=== PATIENT | female | born 1985 | race Caucasian/White ===

== ENCOUNTER 2017-07-08 09:43 | Emergency (ER) | payer OTHER ==
[2017-07-08 09:51] VITALS: BP 114/78
[2017-07-08] MEDS ORDERED: Ibuprofen TAB* 400 MG PO ONE (10:26)
--- NOTE | 2017-07-08 10:30 | UC ---
Knee Pain HPI - HPI Summary HPI Summary: Pt here w/ Lt knee pain since last evening - noticed shortly after trying to round up her chickens. No acute pain but had gradual progression of soreness and stiffness. Worse w/ flexion (can't bend knee - pain/stiffness). Also hurts to fully extend. Denies numbness, tingling, weakness. No bruising, redness or fever to touch. H/o growth plate fx as a teen - screw placed and later removed - no residual issues. She state her knee gets stiff from time to time but she's usually able to walk it off. Tried resting this pain last night but no better this morning and had pain/stiffness throughout the night as well. She's able to bear weight but is worse. Has not tried ice nor ibuprofen yet. - History of Current Complaint Chief Complaint: UCLowerExtremity Stated Complaint: LEG PAIN Time Seen by Provider: 07/08/17 10:07 Hx Obtained From: Patient Hx Last Menstrual Period: 07/07/17 - Allergies/Home Medications Allergies/Adverse Reactions: Allergies Allergy/AdvReac Type Severity Reaction Status Date / Time Sulfa Drugs Allergy Intermediate Rash And Verified 07/08/17 09:46 Itching PMH/Surg Hx/FS Hx/Imm Hx - Surgical History Surgical History: Yes Surgery Procedure, Year, and Place: LEFT KNEE SX. NERVE REPAIR LEFT HAND. C- section - Family History Known Family History: Positive: None - Social History Occupation: Works From/At Home Lives: With Family Alcohol Use: None Substance Use Type: None Substance Use Comment - Amount & Last Used: declines while Smoking Status (MU): Former Smoker Type: Cigarettes Amount Used/How Often: 1/2 PPD Length of Time of Smoking/Using Tobacco: 21 YEARS Have You Smoked in the Last Year: Yes When Did the Patient Quit Smoking/Using Tobacco: December 2016 Household Exposure Type: Cigarettes - Immunization History Most Recent Influenza Vaccination: pt declined Most Recent Tetanus Shot: not given..pt declined Most Recent Pneumonia Vaccination: none Review of Systems Constitutional: Negative Skin: Negative Motor: Other - see HPI Neurovascular: Negative Musculoskeletal: Other: - see HPI Neurological: Negative Psychological: Negative Is Patient Immunocompromised?: No All Other Systems Reviewed And Are Negative: Yes Physical Exam Triage Information Reviewed: Yes Appearance: Well-Appearing, No Pain Distress - at rest; uncomfortable w/ sitting to standing transition w/ LLE movements, Obese Vital Signs: Initial Vital Signs Temp 98.1 F 07/08/17 09:46 Pulse 82 07/08/17 09:46 Resp 16 07/08/17 09:46 BP 114/78 07/08/17 09:46 Pulse Ox 99 07/08/17 09:46 Vital Signs Reviewed: Yes Eye Exam: Normal ENT Exam: Normal Respiratory Exam: Normal Cardiovascular Exam: Normal Cardiovascular: Positive: Pulses Normal, Brisk Capillary Refill Musculoskeletal: Positive: Strength Intact - within limited ROM for Lt knee; FROM and strength for ankles/toes; + modified Bart on Lt, No Edema Neurological Exam: Normal Psychological Exam: Normal Skin Exam: Normal Knee Pain Course/Dx - Course Course Of Treatment: Suspect meniscal injury. XR normal. Advise RICE and cructhes to reduce weight bearing as she's quite active w/ many children and animals at home - this will also help reduce risk of weight bearing w/ pivoting movements which would make injury worse. Advised to rest and f/u w/ PCP in 1 week. If persists to 2 weeks, may need ortho consult. Pt agrees w/ plan. - Differential Dx/Diagnosis Provider Diagnoses: Lt knee pain Discharge - Discharge Plan Condition: Stable Disposition: HOME Patient Education Materials: Knee Pain (ED), Crutch Instructions (ED) Referrals: Antionette Jones MD [Primary Care Provider] - Additional Instructions: Rest, ice, elevate, Compress with ALESHA wrap Avoid weight bearing for 1-2 weeks Gentle range of motion to reduce stiffness and atrophy Take ibuprofen 600mg every 6 hours with food for pain and swelling Follow-up with PCP in 1 week *If pain is same or worse in 2 weeks, may require consult with orthopedics
--- NOTE | 2017-07-08 11:00 | RAD ---
HISTORY: Left knee pain and stiffness COMPARISONS: None VIEWS: 4, Frontal, lateral, axial, and oblique views of the left knee FINDINGS: BONE DENSITY: Normal. BONES: There is no displaced fracture. JOINTS: There is no arthropathy. There is no suprapatellar joint effusion or lipohemarthrosis. ALIGNMENT: There is no dislocation. SOFT TISSUES: Unremarkable. OTHER FINDINGS: None. IMPRESSION: NO ACUTE OSSEOUS INJURY. IF SYMPTOMS PERSIST, RECOMMEND REPEAT IMAGING.
== END 2017-07-08 11:19 | disposition home or self-care (01) ==
LOC: UCEAST 09:43
DX: M25.562 Pain in left knee (principal); Z88.2 Allergy status to sulfonamides; Z87.891 Personal history of nicotine dependence
CPT/HCPCS: 99213; A9270-GY; G0463

== ENCOUNTER 2018-04-12 14:14 | Emergency (ER) | payer OTHER ==
[2018-04-12 14:48] VITALS: BP 107/70
--- NOTE | 2018-04-12 15:37 | ED ---
Throat Pain/Nasal Congestion - HPI Summary HPI Summary: 33F presents with swelling to her left sided jaw for the past couple days. She states she had a toothache a week ago and has been progressively getting worse. She has not seen a dentist. She has history of a diffuse cavities throughout. She had fracture of the tooth previously. No fevers. No difficulty swallowing. No sore throat. No chest pain shortness of breath. No pain with eye movement or swelling around eyes. Has been taking Tylenol for the pain. - History of Current Complaint Chief Complaint: UCDentalProblem Time Seen by Provider: 04/12/18 15:25 - Allergies/Home Medications Allergies/Adverse Reactions: Allergies Allergy/AdvReac Type Severity Reaction Status Date / Time Sulfa (Sulfonamide Allergy Rash And Verified 04/12/18 14:48 Antibiotics) Itching Home Medications: Home Medications Acetaminophen [Tylenol Extra Strength] 2,000 mg PO Q6H PRN 04/12/18 [History Confirmed 04/12/18] Escitalopram Oxalate [Lexapro 20 mg] 20 mg PO DAILY 04/12/18 [History Confirmed 04/12/18] PMH/Surg Hx/FS Hx/Imm Hx Endocrine/Hematology History: Reports: Hx Thyroid Disease - on levothyroxine Denies: Hx Diabetes Cardiovascular History: Denies: Hx Hypertension Respiratory History: Reports: Hx Asthma Denies: Hx Chronic Obstructive Pulmonary Disease (COPD) GI History: Denies: Hx Ulcer Psychiatric History: Reports: Hx Depression - Surgical History Surgery Procedure, Year, and Place: LEFT KNEE SX. NERVE REPAIR LEFT HAND. C- section Infectious Disease History: No Infectious Disease History: Denies: Hx Clostridium Difficile, Hx Hepatitis, Hx Human Immunodeficiency Virus (HIV), Hx of Known/Suspected MRSA, Hx Shingles, Hx Tuberculosis, Hx Known/ Suspected VRE, Hx Known/Suspected VRSA, History Other Infectious Disease, Traveled Outside the [place] in Last 30 Days - Family History Known Family History: Positive: None - Social History Alcohol Use: None Substance Use Type: Reports: None Substance Use Comment - Amount & Last Used: declines while Smoking Status (MU): Former Smoker Type: Cigarettes Amount Used/How Often: 1/2 PPD Length of Time of Smoking/Using Tobacco: 21 YEARS Have You Smoked in the Last Year: Yes Review of Systems Negative: Fever Positive: Dental Pain Negative: Chest Pain Negative: Shortness Of Breath All Other Systems Reviewed And Are Negative: Yes Physical Exam Triage Information Reviewed: Yes Vital Signs On Initial Exam: Initial Vitals Temp Pulse Resp BP Pulse Ox 98.4 F 81 16 107/70 100 04/12/18 14:42 04/12/18 14:42 04/12/18 14:42 04/12/18 14:42 04/12/18 14:42 Vital Signs Reviewed: Yes Appearance: Positive: Well-Appearing Skin: Positive: Warm, Dry Head/Face: Positive: Normal Head/Face Inspection Eyes: Positive: Normal, EOMI, ADALBERTO, Conjunctiva Clear ENT: Positive: Normal ENT inspection, Pharynx normal, TMs normal Dental: Positive: Percussion Tenderness @ - 17,18, Gross Decay/Caries @ - throughout, Abscess @ - swelling to left lower gum Neck: Positive: Supple, Nontender, No Lymphadenopathy Respiratory/Lung Sounds: Positive: Clear to Auscultation, Breath Sounds Present Cardiovascular: Positive: Normal, RRR Musculoskeletal: Positive: Normal Neurological: Positive: Normal Psychiatric: Positive: Normal Diagnostics - Vital Signs Vital Signs Temp Pulse Resp BP Pulse Ox 04/12/18 14:42 98.4 F 81 16 107/70 100 - Laboratory Lab Statement: Any lab studies that have been ordered have been reviewed, and results considered in the medical decision making process. EENT Course/Dx - Course Course Of Treatment: 33F presents with swelling to her left sided jaw for the past couple days. She states she had a toothache a week ago and has been progressively getting worse. She has not seen a dentist. She has history of a diffuse cavities throughout. She had fracture of the tooth previously. No fevers. No difficulty swallowing. No sore throat. No chest pain shortness of breath. No pain with eye movement or swelling around eyes. Has been taking Tylenol for the pain. on exam has swelling to gum and pain to tooth 17-18. no lymphadenopathy. lungs CTA. will treat with augmentin. patient understand and agrees with plan. - Differential Diagnoses Differential Diagnoses: Dental Abscess, Dental Caries, Fractured Tooth - Diagnoses Provider Diagnoses: Dental abscess Discharge - Sign-Out/Discharge Documenting (check all that apply): Discharge/Admit/Transfer - Discharge Plan Condition: Good Disposition: HOME Prescriptions: Amoxicillin/Clavulanate TAB* [Augmentin TAB 875*] 875 mg PO BID #14 tab Ibuprofen TAB* [Motrin TAB* 800 MG] 800 mg PO Q6H PRN #20 tab PRN Reason: Pain Patient Education Materials: Dental Abscess (ED) Referrals: Antionette Jones MD [Primary Care Provider] - Additional Instructions: Take antibiotic twice a day for 10 days Use ibuprofen or tyenlol every 6 hours Avoid hard, crunchy food until seen by dentist Follow up with dentist as soon as possible Return to ED if develop fever, shortness of breath, pain with eye movement or swelling around eye or any new or worsening symptoms - Billing Disposition and Condition Condition: GOOD Disposition: Home Images - Images Dental: 1 - pain
== END 2018-04-12 15:45 | disposition home or self-care (01) ==
LOC: UCEAST 14:14
DX: K04.7 Periapical abscess without sinus (principal); F32.9 Major depressive disorder, single episode, unspecified; E07.9 Disorder of thyroid, unspecified; Z79.899 Other long term (current) drug therapy; Z87.891 Personal history of nicotine dependence; Z88.2 Allergy status to sulfonamides
CPT/HCPCS: 99212; G0463

== ENCOUNTER 2018-05-13 21:04 | Emergency (ER) | payer OTHER ==
[2018-05-13 21:12] VITALS: BP 121/74
[2018-05-13] MEDS ORDERED: Ciprofloxacin TAB* 500 MG PO ONE (21:26)
[2018-05-13] MEDS ORDERED: Naproxen TAB* 250 MG PO ONE (21:26)
--- NOTE | 2018-05-13 21:31 | UC ---
Lower Extremity/Ankle HPI - HPI Summary HPI Summary: 33 year old female presents with puncture wound of left foot that occurred when she stepped on a nail while walking in her yard. States she was wearing rubber flip-flops at the time. Nail penetrated flip-flop approximately 1/4-1/2 inch and entered plantar aspect of left foot just inferior of the MCP great toe. Mild tenderness, erythema and swelling around puncture wound. Patient states nail was completely intact. Denies fever or chills. Tetanus up to date. - History of Current Complaint Chief Complaint: UCWounds Stated Complaint: FOOT INJURY Time Seen by Provider: 05/13/18 21:07 Hx Obtained From: Patient Hx Last Menstrual Period: 04/14/18 ?: No Onset/Duration: Sudden Onset Severity Initially: Mild Severity Currently: Mild Pain Intensity: 5 Aggravating Factor(s): Standing Alleviating Factor(s): Rest, Elevation Able to Bear Weight: Yes - Allergies/Home Medications Allergies/Adverse Reactions: Allergies Allergy/AdvReac Type Severity Reaction Status Date / Time Sulfa (Sulfonamide Allergy Rash And Verified 05/13/18 21:12 Antibiotics) Itching PMH/Surg Hx/FS Hx/Imm Hx Previously Healthy: Yes Endocrine History: Thyroid Disease - Surgical History Surgical History: Yes Surgery Procedure, Year, and Place: LEFT KNEE SX. NERVE REPAIR LEFT HAND. C- section - Family History Known Family History: Positive: None, Other - non-contributory - Social History Occupation: Unemployed Lives: With Family Alcohol Use: None Substance Use Type: None Substance Use Comment - Amount & Last Used: declines while Smoking Status (MU): Former Smoker Type: Cigarettes Amount Used/How Often: 1/2 PPD Length of Time of Smoking/Using Tobacco: 21 YEARS Have You Smoked in the Last Year: Yes When Did the Patient Quit Smoking/Using Tobacco: December 2016 Household Exposure Type: Cigarettes - Immunization History Most Recent Influenza Vaccination: pt declined Most Recent Tetanus Shot: 12/26/13 Most Recent Pneumonia Vaccination: none Review of Systems Constitutional: Negative Skin: Other - erythema Motor: Negative Neurovascular: Negative Musculoskeletal: Negative Is Patient Immunocompromised?: No All Other Systems Reviewed And Are Negative: Yes Physical Exam Triage Information Reviewed: Yes Appearance: Well-Appearing, No Pain Distress, Obese Vital Signs: Initial Vital Signs Temp 97.1 F 05/13/18 21:08 Pulse 89 05/13/18 21:08 Resp 16 05/13/18 21:08 BP 121/74 05/13/18 21:08 Pulse Ox 100 05/13/18 21:08 Vital Signs Reviewed: Yes Musculoskeletal Exam: Normal Skin Exam: Other - Superficial punture wound plantar aspect of left foot immediately inferior to the MCP great toe. Mild localized erythema and edema around puncture site. No FB visualized. Lower Extremity Course/Dx - Course Course Of Treatment: Patient with puncture wound through rubber flip-flop to plantar surface of left foot. There is some localized mild erythema and swelling however appears to be local inflammation as opposed to infection however will treat prophylactically with ciprofloxacin 500 mg BID x 3 days. First dose given in department. Naproxen 500 mg 1 tab every 12 hours as needed for pain. First dose given in department. Tetanus is up to date. - Differential Dx/Diagnosis Provider Diagnoses: puncture wound plantar left foot Discharge - Sign-Out/Discharge Documenting (check all that apply): Patient Departure - Discharge Plan Condition: Stable Disposition: HOME Prescriptions: Ciprofloxacin TAB* [Cipro 500 MG TAB*] 500 mg PO BID #6 tab Naproxen [Naproxen 500 mg tab] 500 mg PO Q12HR #30 tablet Patient Education Materials: Puncture Wound (ED) Referrals: Antionette Jones MD [Primary Care Provider] - 1 Week (if no improvement) - Billing Disposition and Condition Condition: STABLE Disposition: Home
== END 2018-05-13 21:40 | disposition home or self-care (01) ==
LOC: UCEAST 21:04
DX: S91.332A Puncture wound without foreign body, left foot, initial encounter (principal); W45.0XXA Nail entering through skin, initial encounter; Y93.01 Activity, walking, marching and hiking; Y92.096 Garden or yard of other non-institutional residence as the place of occurrence of the external cause; Z88.2 Allergy status to sulfonamides; Z87.891 Personal history of nicotine dependence
CPT/HCPCS: 99212; A9270-GY; G0463

== ENCOUNTER 2018-08-16 09:08 | Emergency (ER) | payer OTHER ==
--- NOTE | 2018-08-16 09:11 | UC ---
Throat Pain/Nasal Jayjay HPI - HPI Summary HPI Summary: 33 yo female presents with dry cough, sore throat, fatigue, and body aches for the last 3 days. She has been taking tylenol and ibuprofen with mild relief of her symptoms. Her daughter is sick with similar symptoms and pt wants to make sure she does not have strep. She has felt feverish hot/cold, but has not taken her temperature. Denies sinus symptoms, SOB, chest pain, n/v. - History of Current Complaint Stated Complaint: THROAT PAIN Time Seen by Provider: 08/16/18 09:10 Hx Obtained From: Patient Hx Last Menstrual Period: 04/14/18 Onset/Duration: Gradual Onset Severity: Mild Pain Intensity: 4 Pain Scale Used: 0-10 Numeric Cough: Nonproductive - Allergies/Home Medications Allergies/Adverse Reactions: Allergies Allergy/AdvReac Type Severity Reaction Status Date / Time Sulfa (Sulfonamide Allergy Rash And Verified 08/16/18 09:15 Antibiotics) Itching Home Medications: Home Medications buPROPion TAB* [Wellbutrin TAB*] 150 mg PO DAILY 08/16/18 [History Confirmed 02/26] PMH/Surg Hx/FS Hx/Imm Hx Endocrine History: Hypothyroidism Psychological History: Anxiety, Depression - Surgical History Surgical History: Yes Surgery Procedure, Year, and Place: LEFT KNEE SX. NERVE REPAIR LEFT HAND. C- section - Family History Known Family History: Positive: None, Other - non-contributory - Social History Occupation: Employed Full-time Lives: With Family Alcohol Use: None Substance Use Type: None Substance Use Comment - Amount & Last Used: declines while Smoking Status (MU): Former Smoker Type: Cigarettes Amount Used/How Often: 1/2 PPD Length of Time of Smoking/Using Tobacco: 21 YEARS Have You Smoked in the Last Year: Yes When Did the Patient Quit Smoking/Using Tobacco: December 2016 Household Exposure Type: Cigarettes - Immunization History Most Recent Influenza Vaccination: pt declined Most Recent Tetanus Shot: 12/26/13 Most Recent Pneumonia Vaccination: none Review of Systems Constitutional: Fatigue, Other - Body aches Skin: Negative Eyes: Negative ENT: Sore Throat Respiratory: Cough Cardiovascular: Negative Gastrointestinal: Negative Neurological: Negative Psychological: Negative All Other Systems Reviewed And Are Negative: Yes Physical Exam - Summary Physical Exam Summary: GENERAL: NAD. Mildly fatigued appearing SKIN: No rashes, sores, lesions, or open wounds. HEENT: Head: AT/NC Eyes: EOM intact. Conjunctiva clear without inflammation or discharge. Ears: Hearing grossly normal. TMs intact, no bulging, erythema, or edema. Nose: Nasal mucosa pink and moist. NTTP maxillary and frontal sinus. Throat: Posterior oropharynx without exudates, erythema, or tonsillar enlargement. Uvula midline. NECK: Supple. Nontender. No lymphadenopathy. CHEST: CTAB. No r/r/w. No accessory muscle use. Breathing comfortably and in no distress. CV: RRR. Without m/r/g. Pulses intact. Cap refill <2seconds NEURO: Alert. PSYCH: Age appropriate behavior. Triage Information Reviewed: Yes Vital Signs: Vital Signs: Temp Pulse Resp BP Pulse Ox 97 F 87 16 112/75 98 08/16/18 09:11 08/16/18 09:11 08/16/18 09:11 08/16/18 09:11 08/16/18 09:11 Laboratory Tests 08/16/18 09:29 Group A Strep Rapid Negative Vital Signs Reviewed: Yes Throat Pain/Nasal Course/Dx - Course Course Of Treatment: POC strep negative. Suspect viral cough. Will treat with tessalon and cough syrup at bedtime. Advised to rest, drink plenty of fluids, and continue with tylenol/ibuprofen for discomfort. - Differential Dx/Diagnosis Provider Diagnoses: Viral syndrome. Cough Discharge - Sign-Out/Discharge Documenting (check all that apply): Patient Departure All imaging exams completed and their final reports reviewed: No Studies - Discharge Plan Condition: Stable Disposition: HOME Prescriptions: Benzonatate CAP* [Tessalon 100 MG CAP*] 100 mg PO TID PRN #15 cap PRN Reason: Cough Codeine Phosphate/Guaifenesin [Guaifen-Codeine 100-10 mg/5 ml] 5 ml PO BEDTIME PRN #35 ml MDD 5mL PRN Reason: Cough Patient Education Materials: Viral Syndrome (ED), Acute Cough (ED) Referrals: Antionette Jones MD [Primary Care Provider] - Additional Instructions: If you develop a fever, shortness of breath, chest pain, new or worsening symptoms - please call your PCP or go to the ED. - Billing Disposition and Condition Condition: STABLE Disposition: Home
[2018-08-16 09:14] VITALS: BP 112/75
== END 2018-08-16 09:53 | disposition home or self-care (01) ==
LOC: UCEAST 09:08
DX: B34.9 Viral infection, unspecified (principal); R05 Cough; F32.9 Major depressive disorder, single episode, unspecified; Z88.2 Allergy status to sulfonamides; Z87.891 Personal history of nicotine dependence
CPT/HCPCS: 87651; 99212; G0463

== ENCOUNTER 2018-08-25 17:21 | Emergency (ER) | payer OTHER ==
--- NOTE | 2018-08-25 18:38 | ED ---
Respiratory - HPI Summary HPI Summary: Ms. Richey comes back about 9 days after being seen here for sore throat congestion and cough. She is continued to have congestion and cough and stuffed up years. She denies any fevers. Her cough has become paroxysmal. - History of Current Complaint Chief Complaint: UCRespiratory Stated Complaint: COUGH Time Seen by Provider: 08/25/18 18:18 Hx Obtained From: Patient Onset/Duration: Gradual Onset Timing: Constant Initial Severity: Mild Current Severity: Moderate Pain Intensity: 0 Sputum Amount: Moderate Sputum Color: White Aggravating Factor(s): Nothing Alleviating Factor(s): Nothing Associated Signs and Symptoms: SOB, Nasal Congestion, Hoarseness - Allergy/Home Medications Allergies/Adverse Reactions: Allergies Allergy/AdvReac Type Severity Reaction Status Date / Time Sulfa (Sulfonamide Allergy Rash And Verified 08/25/18 17:30 Antibiotics) Itching PMH/Surg Hx/FS Hx/Imm Hx Endocrine/Hematology History: Reports: Hx Thyroid Disease Denies: Hx Diabetes Cardiovascular History: Denies: Hx Hypertension Respiratory History: Reports: Hx Asthma Denies: Hx Chronic Obstructive Pulmonary Disease (COPD) GI History: Denies: Hx Ulcer Psychiatric History: Reports: Hx Depression - Surgical History Surgery Procedure, Year, and Place: LEFT KNEE SX. NERVE REPAIR LEFT HAND. C- section Infectious Disease History: No Infectious Disease History: Denies: Hx Clostridium Difficile, Hx Hepatitis, Hx Human Immunodeficiency Virus (HIV), Hx of Known/Suspected MRSA, Hx Shingles, Hx Tuberculosis, Hx Known/ Suspected VRE, Hx Known/Suspected VRSA, History Other Infectious Disease, Traveled Outside the [place] in Last 30 Days - Family History Known Family History: Positive: None, Other - non-contributory - Social History Alcohol Use: None Substance Use Type: Reports: None Substance Use Comment - Amount & Last Used: declines while Smoking Status (MU): Former Smoker Type: Cigarettes Amount Used/How Often: 1/2 PPD Length of Time of Smoking/Using Tobacco: 21 YEARS Have You Smoked in the Last Year: Yes Review of Systems Constitutional: Negative Eyes: Negative Positive: Ear Ache - Pressure not pain Cardiovascular: Negative Positive: Shortness Of Breath, Cough Gastrointestinal: Negative Genitourinary: Negative Musculoskeletal: Negative Skin: Negative Neurological: Negative Psychological: Normal All Other Systems Reviewed And Are Negative: Yes Physical Exam - Summary Physical Exam Summary: She is nontoxic in appearance and her vitals are stable. Vital Signs On Initial Exam: Initial Vitals Temp Pulse Resp BP Pulse Ox 97.9 F 92 22 108/73 96 08/25/18 17:26 08/25/18 17:26 08/25/18 17:26 08/25/18 17:26 08/25/18 17:26 Vital Signs Reviewed: Yes Appearance: Positive: Well-Appearing Skin: Positive: Warm, Skin Color Reflects Adequate Perfusion, Dry Eyes: Positive: Normal ENT: Positive: Pharynx normal, TM dull Neck: Positive: Supple, Nontender, No Lymphadenopathy Respiratory/Lung Sounds: Positive: Clear to Auscultation, Breath Sounds Present Cardiovascular: Positive: Normal, RRR Abdomen Description: Positive: Nontender Bowel Sounds: Positive: Present Musculoskeletal: Positive: Normal Neurological: Positive: Normal Diagnostics - Vital Signs Vital Signs Temp Pulse Resp BP Pulse Ox 08/25/18 17:26 97.9 F 92 22 108/73 96 - Laboratory Lab Statement: Any lab studies that have been ordered have been reviewed, and results considered in the medical decision making process. Disposition - Course Course Of Treatment: There is still no evidence for a bacterial infection. She is a nonsmoker and I will continue her symptomatic treatment. She didn't feel that the codeine helped her much and I will switch her to Tussionex. - Diagnoses Provider Diagnoses: URI (upper respiratory infection), Bronchitis Discharge - Sign-Out/Discharge Documenting (check all that apply): Patient Departure All imaging exams completed and their final reports reviewed: Yes - Discharge Plan Condition: Stable Disposition: HOME Prescriptions: Albuterol HFA INHALER* [Ventolin HFA Inhaler*] 1 puff INH Q4H PRN #1 mdi PRN Reason: Cough Hydrocodone/Chlorphen P-Stirex [Tussionex Pennkinetic Susp] 5 ml PO Q12HR PRN # 100 ml MDD 10 PRN Reason: Cough Patient Education Materials: Acute Bronchitis (ED), Upper Respiratory Infection (ED) Referrals: Antionette Jones MD [Primary Care Provider] - - Billing Disposition and Condition Condition: STABLE Disposition: Home
[2018-08-25 19:13] VITALS: BP 112/77
== END 2018-08-25 19:13 | disposition home or self-care (01) ==
LOC: UCEAST 17:21
DX: J06.9 Acute upper respiratory infection, unspecified (principal); J40 Bronchitis, not specified as acute or chronic; Z88.1 Allergy status to other antibiotic agents; Z87.891 Personal history of nicotine dependence
CPT/HCPCS: 99212; G0463

== ENCOUNTER 2018-09-05 11:30 | Emergency (ER) | payer OTHER ==
--- NOTE | 2018-09-05 12:07 | ED ---
Respiratory - HPI Summary HPI Summary: This patient is a 33 year old F presenting to [facility] accompanied by a child with a chief complaint of URI sx for the last 20 days. The patient rates the pain 3/ 10 in severity. Patient reports productive cough with green phlegm and congestion in bilateral ears. She also c/o has CP during coughing fits. Pt was seen at [facility] twice for these sx and has not been given abx as they believe it is viral. She is upset that she has not received abx. She also c/o a bump in her left costal area since last night that hurts when cough she states it is inside her ribs and that she cannot palpate it. She was given an inhaler at [facility] but states it is not helping. - History of Current Complaint Chief Complaint: EDUpperRespComplaint Stated Complaint: COUGH/RUNNY NOSE/FLANK PAIN Time Seen by Provider: 09/05/18 11:51 Hx Obtained From: Patient Onset/Duration: Still Present Timing: Constant Initial Severity: Moderate Current Severity: Moderate Pain Intensity: 3 Character: Cough (Productive) Sputum Amount: Small Sputum Color: Green Alleviating Factor(s): Nothing Associated Signs and Symptoms: Chest Pain with Cough - Allergy/Home Medications Allergies/Adverse Reactions: Allergies Allergy/AdvReac Type Severity Reaction Status Date / Time Sulfa (Sulfonamide Allergy Rash And Verified 08/25/18 17:30 Antibiotics) Itching PMH/Surg Hx/FS Hx/Imm Hx Endocrine/Hematology History: Reports: Hx Thyroid Disease Denies: Hx Diabetes Cardiovascular History: Denies: Hx Hypertension Respiratory History: Reports: Hx Asthma Denies: Hx Chronic Obstructive Pulmonary Disease (COPD) GI History: Denies: Hx Ulcer Psychiatric History: Reports: Hx Depression - Surgical History Surgery Procedure, Year, and Place: LEFT KNEE SX. NERVE REPAIR LEFT HAND. C- section Infectious Disease History: No Infectious Disease History: Denies: Hx Clostridium Difficile, Hx Hepatitis, Hx Human Immunodeficiency Virus (HIV), Hx of Known/Suspected MRSA, Hx Shingles, Hx Tuberculosis, Hx Known/ Suspected VRE, Hx Known/Suspected VRSA, History Other Infectious Disease, Traveled Outside the [place] in Last 30 Days - Family History Known Family History: Positive: Other - non-contributory, Non-Contributory - Social History Lives: With Family Alcohol Use: None Substance Use Type: Reports: None Substance Use Comment - Amount & Last Used: declines while Hx Tobacco Use: Yes Smoking Status (MU): Former Smoker Type: Cigarettes Amount Used/How Often: 1/2 PPD Length of Time of Smoking/Using Tobacco: 21 YEARS Have You Smoked in the Last Year: Yes Review of Systems Negative: Fever ENT: Other - ear congestion Positive: Chest Pain Positive: Cough Positive: Other - rib pain All Other Systems Reviewed And Are Negative: Yes Physical Exam - Summary Physical Exam Summary: Appearance: Well appearing, no pain distress Skin: warm, dry, reflects adequate perfusion Head/face: normal Eyes: EOMI, ADALBERTO ENT: normal Neck: supple, non-tender Respiratory: CTA, breath sounds present Cardiovascular: RRR, pulses symmetrical Abdomen: non-tender, soft Bowel: present Musculoskeletal: TTP in the left chest wall, strength/ROM intact Neuro: normal, sensory motor intact, A&Ox3 Triage Information Reviewed: Yes Vital Signs On Initial Exam: Initial Vitals Temp Pulse Resp BP Pulse Ox 97.4 F 95 18 146/84 97 09/05/18 11:32 09/05/18 11:32 09/05/18 11:32 09/05/18 11:32 09/05/18 11:32 Vital Signs Reviewed: Yes Diagnostics - Vital Signs Vital Signs Temp Pulse Resp BP Pulse Ox 09/05/18 11:32 97.4 F 95 18 146/84 97 - Laboratory Lab Statement: Any lab studies that have been ordered have been reviewed, and results considered in the medical decision making process. - Radiology CXR Radiology Interpretation Completed By: Radiologist Summary of Radiographic Findings: Findings consistent with right lower lobe pneumonia. ED physician has reviewed this radiology report. Disposition - Course Assessment/Plan: Pt presents with persistent URI sx after being seen for them twice in the last month. CXR reveals, per radiologist, Findings consistent with right lower lobe pneumonia. In the ED course the patient was given Zithromax. Patient will be discharged with prescription for Z-Vernon and motrin and follow up from PCP. The patient is agreeable with this plan. - Differential Dx - Cardiopulmonary Differential Diagnoses - Cardiopulmonary: Bronchitis, Lower Resp Infection - Diagnoses Provider Diagnoses: PNA (pneumonia) Discharge - Sign-Out/Discharge Documenting (check all that apply): Patient Departure - Discharge Plan Condition: Stable Disposition: HOME Prescriptions: Azithromycin TAB* [Zithromax TAB (Z-VERNON) 250 mg #6 tabs] 250 mg PO DAILY #4 tab Ibuprofen TAB* [Motrin TAB* 600 MG] 600 mg PO Q8H PRN #15 tab MDD 3 PRN Reason: Pain Patient Education Materials: Bacterial Pneumonia (ED) Referrals: Antionette Jones MD [Primary Care Provider] - 3 Days Additional Instructions: Please return to the emergency department for any new or worsening symptoms. - Billing Disposition and Condition Condition: STABLE Disposition: Home - Attestation Statements Document Initiated by Scribe: Yes Documenting Scribe: Wilman Stuart Provider For Whom Lloydibe is Documenting (Include Credential): Fernando Ratliff MD Scribe Attestation: Wilman Garsia , scribed for Fernando Ratliff MD on 09/05/18 at 1329. Scribe Documentation Reviewed: Yes Provider Attestation: The documentation as recorded by the Wilman miller accurately reflects the service I personally performed and the decisions made by Fernando alvarez MD
[2018-09-05] MEDS ORDERED: Azithromycin TAB* 250 MG PO ONE (12:49)
[2018-09-05 13:13] VITALS: BP 120/74
== END 2018-09-05 13:12 | disposition home or self-care (01) ==
LOC: ED 11:30
DX: J18.9 Pneumonia, unspecified organism (principal); Z87.891 Personal history of nicotine dependence; Z88.2 Allergy status to sulfonamides
CPT/HCPCS: 71046; 99282; A9270-GY

== ENCOUNTER 2018-09-09 17:12 | Emergency (ER) | payer OTHER ==
[2018-09-09 17:31] VITALS: BP 106/64
--- NOTE | 2018-09-09 17:48 | UC ---
Cardiac HPI - HPI Summary HPI Summary: 33-year-old female comes to clinic today with a chief complaint of left lower lateral chest pain. Couple hours ago while she was coughing. The pop. It's worse to cough and take a deep breath. Patient has a recent diagnosis of right sided pneumonia and she's been coughing quite a bit the last several weeks. This finished a prescription of days azithromycin. No fevers now no shortness of breath now. No edema or calf pain. - History of Current Complaint Chief Complaint: UCRespiratory Stated Complaint: CHEST CONGESTION, RIB PAIN, AND COUGH Time Seen by Provider: 09/09/18 17:34 Hx Last Menstrual Period: 09/04/18 Pain Intensity: 8 - Allergy/Home Medications Allergies/Adverse Reactions: Allergies Allergy/AdvReac Type Severity Reaction Status Date / Time Sulfa (Sulfonamide Allergy Rash And Verified 09/09/18 17:32 Antibiotics) Itching PMH/Surg Hx/FS Hx/Imm Hx Endocrine History: Hypothyroidism Respiratory History: Asthma - Surgical History Surgical History: Yes Surgery Procedure, Year, and Place: LEFT KNEE SX. NERVE REPAIR LEFT HAND. C- section - Family History Known Family History: Positive: Other - non-contributory, Non-Contributory - Social History Alcohol Use: None Substance Use Type: None Substance Use Comment - Amount & Last Used: declines while Smoking Status (MU): Former Smoker Type: Cigarettes Amount Used/How Often: 1/2 PPD Length of Time of Smoking/Using Tobacco: 21 YEARS Have You Smoked in the Last Year: Yes When Did the Patient Quit Smoking/Using Tobacco: December Household Exposure Type: Cigarettes - Immunization History Most Recent Influenza Vaccination: pt declined Most Recent Tetanus Shot: 12/26/13 Most Recent Pneumonia Vaccination: none Review of Systems All Other Systems Reviewed And Are Negative: Yes Constitutional: Positive: Negative Skin: Positive: Negative Eyes: Positive: Negative ENT: Positive: Negative Respiratory: Positive: Shortness Of Breath, Cough Cardiovascular: Positive: Chest Pain Gastrointestinal: Positive: Negative Motor: Positive: Negative Neurovascular: Positive: Negative Musculoskeletal: Positive: Negative Neurological: Positive: Negative Psychological: Positive: Negative Is Patient Immunocompromised?: No Physical Exam Triage Information Reviewed: Yes Appearance: Well-Appearing, Well-Nourished, Pain Distress - mild with cough/ movement Vital Signs: Initial Vital Signs Temp 98.9 F 11/29/18 17:23 Pulse 80 09/09/18 17:23 Resp 16 09/09/18 17:23 BP 106/64 09/09/18 17:23 Pulse Ox 96 09/09/18 17:23 Vital Signs Reviewed: Yes Eye Exam: Normal Eyes: Positive: Conjunctiva Clear ENT: Positive: Pharynx normal Neck exam: Normal Neck: Positive: Supple Respiratory: Positive: Lungs clear, Normal breath sounds, Other: - Tender to palpation left lateral lower ribs. Cardiovascular: Positive: RRR Abdominal Exam: Normal Abdomen Description: Positive: Nontender, Soft. Negative: CVA Tenderness (R), CVA Tenderness (L) Musculoskeletal Exam: Normal Musculoskeletal: Positive: Strength Intact, ROM Intact Neurological Exam: Normal Neurological: Positive: Alert, Muscle Tone Normal Psychological Exam: Normal Psychological: Positive: Age Appropriate Behavior Skin Exam: Normal - Assessment/Plan Course Of Treatment: I reviewed the chest x-ray with the patient. There is an infiltrate on the right side. No pneumothorax. No rib fracture. There is blunting of the left costophrenic angle. That makes me suspicious for a pleural effusion. Radiologist reading is pending. Overall the patient's chief complaint is pain. I'm prescribing hydrocodone and follow-up with her primary care doctor reevaluation sooner if worse. - Clinical Impression Provider Diagnosis: Left sided chest pain Discharge - Sign-Out/Discharge Documenting (check all that apply): Patient Departure All imaging exams completed and their final reports reviewed: No - Discharge Plan Condition: Stable Disposition: HOME Prescriptions: HYDROcodone/ACETAMIN 5-325 MG* [[place] 5-325 TAB*] 1 tab PO Q4H PRN #20 tab MDD 6 PRN Reason: Pain Patient Education Materials: Chest Pain (ED) Referrals: Antionette Jones MD [Primary Care Provider] - Additional Instructions: FOLLOW UP WITH YOUR DOCTOR. GET RECHECKED FOR ANY WORSENING OF YOUR CONDITION; PAIN, FEVER, SHORTNESS OF BREATH, YOU FEEL ILL OR QUESTIONS OR CONCERNS. - Billing Disposition and Condition Condition: STABLE Disposition: Home
--- NOTE | 2018-09-10 08:16 | UC ---
- Progress Note Progress Note: prelim read with right infiltrate Patient Name: CORAL HAYES Medical Record#: [id number] Ordering Physician: Salvador Heart MD Acct.#: [id number] : 1985 Age: 33 Sex: F Location: [facility] Exam Date: 09/09/18 1741 ADM Status: DEP ER Order Information: RIBS LT UNI W/PA CH MIN 3 VWS Accession Number: [id number] CPT: 72995 INDICATION: Left rib injury. COMPARISON: Comparison is made with prior chest X ray study from September 05, 2018. TECHNIQUE: 4 views of the left ribs and dual-energy PA views of the chest were obtained. FINDINGS: No fracture or significant focal osseous abnormality is seen. The heart is within normal limits in size. The lungs are underinflated. There are small infiltrates at both lung bases. The right basilar infiltrate appears unchanged from the prior study. No pleural effusion or pneumothorax is seen. IMPRESSION: 1. SMALL BIBASILAR INFILTRATES. 2. NO EVIDENCE FOR FRACTURE, IF THE PATIENT'S SYMPTOMS PERSIST RECOMMEND FOLLOW- UP IMAGING. R0 Preliminary Imaging Read R0 <Electronically signed by Dell Geiger MD in OV> 09/10/18718 Dictated By: Dell Geiger MD Dictated Date/Time: 09/10/18718 Transcribed Date/Time: 09/10/18714 Copy to: CC:Antionette Jones MD; Salvador Heart MD Imaging - [facility] Imaging - [place] [facility] Imaging - [facility] [address] [place] [address] ph ([phone]) ph ([phone]) ph ([phone]) This report is only to be considered final once signed by the Provider(s) as displayed in the "<Electronically Signed by >" field (s). Absence of a signature indicates the report is in a draft status and still needs to be finalized. In the event this document was created by someone other than the signing Provider, the individual initiating the document will be listed in the "Entered by:" or "Dictated by:" diego. 1 of 1 Course/Dx - Diagnoses Provider Diagnoses: Left sided chest pain Discharge - Sign-Out/Discharge Documenting (check all that apply): Post-Discharge Follow Up All imaging exams completed and their final reports reviewed: Yes - Discharge Plan Condition: Stable Disposition: HOME Prescriptions: HYDROcodone/ACETAMIN 5-325 MG* [[place] 5-325 TAB*] 1 tab PO Q4H PRN #20 tab MDD 6 PRN Reason: Pain Patient Education Materials: Chest Pain (ED) Referrals: Antionette Jones MD [Primary Care Provider] - Additional Instructions: FOLLOW UP WITH YOUR DOCTOR. GET RECHECKED FOR ANY WORSENING OF YOUR CONDITION; PAIN, FEVER, SHORTNESS OF BREATH, YOU FEEL ILL OR QUESTIONS OR CONCERNS. - Billing Disposition and Condition Condition: STABLE Disposition: Home
== END 2018-09-09 19:06 | disposition home or self-care (01) ==
LOC: UCEAST 17:12
DX: R07.89 Other chest pain (principal); R91.8 Other nonspecific abnormal finding of lung field; Z88.2 Allergy status to sulfonamides; Z87.891 Personal history of nicotine dependence
CPT/HCPCS: 99212; G0463

== ENCOUNTER 2020-07-11 09:45 | Inpatient (IN) ==
[~2020-07-11 09:45] MED LIST: Buffered Lidocaine 1% SYRIN 1 ml INTRADERM ONE; Dexamethasone IV 4 MG/ML VIAL 1 ml VIAL IV SLOW PU ONE; Lactated Ringers 1000 ml BAG 1,000 ML IV SCH
[2020-07-11] MEDS ORDERED: Ondansetron 4 mg VIAL 2 MG/ML 2 ml VIAL ONE ×2 (10:29→16:22)
[2020-07-11] MEDS ORDERED: Dexamethasone IV 4 MG/ML VIAL 1 ml VIAL ONE ×2 (10:29)
[2020-07-11] MEDS ORDERED: Propofol 10 MG/ML 20 ML BTL ONE (10:29)
[2020-07-11] MEDS ORDERED: ceFAZolin 2 GM PREMIX 2 GM/50 ML BAG ONE (10:30)
[2020-07-11] MEDS ORDERED: ceFAZolin 1 GM ADVAN 1 GM ADDV.VIAL IVPB ONE (10:30)
[2020-07-11] MEDS ORDERED: fentaNYL 250 mcg/5 ml 50 MCG/ML 5 ml VIAL (250 MCG) ONE (10:30)
[2020-07-11] MEDS ORDERED: Midazolam 5 mg/5 ml VIAL 1 mg/ml 5 ml VIAL (5 mg) ONE (10:30)
[2020-07-11] MEDS ORDERED: Ketamine HCL 50 mg/ml 10 ml VIAL (500 MG) ONE (10:30)
[2020-07-11] MEDS ORDERED: Lidocaine 2% PF 5 ML VIAL ONE (10:30)
[2020-07-11] MEDS ORDERED: Rocuronium 50 mg VIAL 10 mg/ml 5 ml VIAL (50 mg) ONE (10:34)
[2020-07-11] MEDS ORDERED: Heparin 5000 UNITS/ML 1 mL VIAL ONE (10:36)
[2020-07-11] MEDS ORDERED: Bupivacaine 0.25% SDV 30 ML ONE (12:07)
[2020-07-11] MEDS ORDERED: Methylene Blue 0.5 % 50 MG/10 ML AMP IV ONE (12:07)
[2020-07-11] MEDS ORDERED: Acetaminophen IV 1 GM/100ML 100 ML ONE (14:49)
[2020-07-11] MEDS ORDERED: HYDROcodone/ACET. 7.5/325 LIQ 15 ML UDC PO PRN (15:18)
[2020-07-11] MEDS ORDERED: HYDROmorphone 1 MG/1 ML SYRINGE IV SLOW PU PRN (15:18)
[2020-07-11] MEDS ORDERED: HYDROmorphone 0.5 MG/0.5 ML SYRINGE IV SLOW PU PRN (15:18)
[2020-07-11] MEDS ORDERED: Ondansetron 4 mg VIAL 2 MG/ML 2 ml VIAL IV PRN ×2 (15:18→16:13)
[2020-07-11] MEDS ORDERED: HYDROmorphone 1 MG/1 ML SYRINGE IV PRN (16:13)
[2020-07-11] MEDS ORDERED: Naloxone 0.4 mg VIAL 0.4 mg/ml 1 ml VIAL IV PRN (16:13)
[2020-07-11] MEDS ORDERED: fentaNYL 100 mcg/2 ml 50 MCG/ML VIAL IV PRN (16:13)
[2020-07-11] MEDS ORDERED: fentaNYL 100 mcg/2 ml 50 MCG/ML VIAL ONE (16:22)
[2020-07-11] MEDS ORDERED: Albuterol HFA INHALER 8 gm MDI INH PRN (17:30)
[2020-07-11] MEDS: Lactated Ringers 1000 ml BAG 1,000 ML IV SCH (17:31)
[2020-07-11] MEDS: Famotidine IV 10 MG/ML 2 ml VIAL (20 mg) IV SLOW PU SCH (20:25)
[2020-07-11] MEDS: Heparin 5000 UNITS/ML 1 mL VIAL SUBCUT SCH (21:47)
[2020-07-12] MEDS: Lactated Ringers 1000 ml BAG 1,000 ML IV SCH ×2 (00:22→07:57)
[2020-07-12] MEDS: Levothyroxine 100 MCG/5 ML VIAL IV SCH (05:53)
[2020-07-12] MEDS: Heparin 5000 UNITS/ML 1 mL VIAL SUBCUT SCH ×3 (05:53→22:33)
[2020-07-12] MEDS: Famotidine IV 10 MG/ML 2 ml VIAL (20 mg) IV SLOW PU SCH ×2 (08:38→20:59)
[2020-07-12] MEDS: D5W 1/2 NS KCl 20 meq 1000 ml 1,000 ML IV SCH (15:44)
[2020-07-13] MEDS: D5W 1/2 NS KCl 20 meq 1000 ml 1,000 ML IV SCH ×2 (00:01→08:06)
[2020-07-13] MEDS: Levothyroxine 100 MCG/5 ML VIAL IV SCH (06:26)
[2020-07-13] MEDS: Heparin 5000 UNITS/ML 1 mL VIAL SUBCUT SCH ×2 (06:28→14:49)
[2020-07-13] MEDS: Famotidine IV 10 MG/ML 2 ml VIAL (20 mg) IV SLOW PU SCH (10:20)
[2020-07-13 15:56] VITALS: BP 106/67
[2020-07-14] MEDS ORDERED: Scopolamine PATCH Remove NOTE PATCH OFF ONE (06:00)
== END 2020-07-13 18:00 | disposition home or self-care (01) | DRG 403 ==
LOC: AA 09:54 → SSU 15:18
PROVIDERS: ADMIT Surgery; ATTEND Surgery